=== PATIENT | female | born 1965 | race Caucasian/White ===

== ENCOUNTER 2019-03-17 08:10 | Emergency (ER) | payer OTHER ==
[2019-03-17] MEDS ORDERED: HYDROcodone/Acetaminophen 5/325 mg Tablet ONE (09:17)
[2019-03-17] MEDS ORDERED: cefTRIAXone\\ROCEPHIN 1 GM VIAL ONE (09:17)
[2019-03-17] MEDS ORDERED: Ketorolac Tromethamine 60 MG/2 ML VIAL ONE (09:17)
[2019-03-17] MEDS ORDERED: Lidocaine 1% 20 ML MDV ONE (09:17)
== END 2019-03-17 09:58 | disposition home or self-care (01) ==
LOC: MADERS 08:10
DX: K04.7 Periapical abscess without sinus (principal); Z79.899 Other long term (current) drug therapy
CPT/HCPCS: 96372; 99282; J0696; J1885; J2001